=== PATIENT | male | born 1990 | race African-American/Black ===

== ENCOUNTER 2019-08-15 03:54 | Emergency (ER) | payer MEDICAID ==
[~2019-08-15] VITALS: Ht 167.6 cm; Wt 85.0 kg
[2019-08-15] MEDS ORDERED: TETANUS, DIPHTHERIA, PERTUSSIS VAC/PF 0.5ML (>7YR OLD) IM ONE (04:15)
[2019-08-15 04:45] VITALS: BP 133/79
[2019-08-15] MEDS ORDERED: IBUPROFEN 600MG TABLET PO ONE (04:45)
== END 2019-08-15 05:53 | disposition home or self-care (01) ==
LOC: ER 03:54
DX: S01.81XA Laceration without foreign body of other part of head, initial encounter (principal); W26.0XXA Contact with knife, initial encounter; Y93.89 Activity, other specified; Y92.89 Other specified places as the place of occurrence of the external cause; Y99.8 Other external cause status; F17.290 Nicotine dependence, other tobacco product, uncomplicated
CPT/HCPCS: 12013; 73090; 90471; 90715; 99283; Z7610